=== PATIENT | female | born 1930 | race Asian ===

== ENCOUNTER 2017-08-14 18:19 | Emergency (ER) | payer OTHER ==
[~2017-08-14] VITALS: Ht 147.3 cm; Wt 44.7 kg
[2017-08-14 21:30] VITALS: BP 191/80
== END 2017-08-14 21:33 | disposition home or self-care (01) ==
LOC: EME 18:19
DX: I10 Essential (primary) hypertension (principal); J20.9 Acute bronchitis, unspecified; E78.5 Hyperlipidemia, unspecified
CPT/HCPCS: 71046; 99281; 99284